=== PATIENT | male | born 1970 | race Caucasian/White ===

== ENCOUNTER → 2021-04-08 | Outpatient (CLI) | payer OTHER ==
--- NOTE | 2021-04-08 14:38 | KCIC ---
XR KNEE _3 VIEWS_LT 04/07/2021 Reason: Medial Lt knee pain. / Spl. Instructions: Pt felt a "pop" medial aspect of knee 1 wk. ago Comparison: None Technique: 3 views of the left knee Findings: No acute fracture or dislocation. Bone mineralization is within normal limits. No knee joint effusion . No significant degenerative change. Impression: No acute osseous abnormality. Electronically signed by: Benito Sage (04/08/2021 2:36 PM) [id number]
== END ==
LOC: KCIC 10:24
PROVIDERS: ATTEND Family Medicine
DX: M25.562 Pain in left knee (principal)
CPT/HCPCS: 73562